=== PATIENT | female | born 1940 | race Caucasian/White ===

== ENCOUNTER → 2017-12-07 | Outpatient (CLI) | payer OTHER ==
--- NOTE | 2017-12-07 13:54 | 2DMMODE ---
[place] [address] 2 D/M-MODE ECHOCARDIOGRAM Name: RADHA WOLFF Room: [facility]#: [id number] Admission: 12/07/17 Attend Phys: Tanner Sutherland, Discharge: Date of : 40 Date of Service: 12/07/17 1353 Report #: [id number] THIS REPORT FOR: //name// APPROVED REPORT Study performed: 12/07/2017 13:11:12 EXAM: Comprehensive 2D, Doppler, and color-flow Echocardiogram Patient Location: Out-Patient BSA: 1.68 HR: 50 bpm BP: 170/98 mmHg Other Information Study Quality: Good Indications Dyspnea 2D Dimensions LVEF(%): 64.31 (>50%) IVSd: 10.17 (7-11mm) LVOT Diam: 20.13 (18-24mm) LVDd: 41.43 mm PWd: 9.65 (7-11mm) Ascending Ao: 30.62 (22-36mm) LVDs: 27.06 (25-40mm) Aortic Root: 25.99 mm Almaguer's LVEF: 64.31 % Volumes Left Atrial Volume (Systole) LA ESV Index: 22.90 mL/m2 Aortic Valve AoV Peak Juan Daniel.: 1.08 m/s AO Peak Gr.: 4.63 mmHg LVOT Max P.39 mmHg AO Mean Gr.: 2.50 mmHg LVOT Mean P.13 mmHg LVOT Max V: 0.77 m/s AO V2 VTI: 26.26 cm LVOT Mean V: 0.48 m/s JASON (VTI): 2.19 cm2 LVOT V1 VTI: 18.12 cm Mitral Valve E/A Ratio: 1.29 MV Decel. Time: 142.96 ms MV E Max Juan Daniel.: 0.65 m/[place] [address] 2 D/M-MODE ECHOCARDIOGRAM Name: NEWRADHA Robina Room: [facility]#: [id number] Admission: 12/07/17 Attend Phys: Tanner Sutherland, Discharge: Date of : 40 Date of Service: 12/07/17 1353 Report #: [id number] MV PHT: 41.46 ms MVA (PHT): 5.31 cm2 TDI E/Lateral E': 8.13 E/Medial E': 7.22 Medial E' Juan Daniel.: 0.09 m/s Lateral E' Juan Daniel.: 0.08 m/s Pulmonary Valve PV Peak Juan Daniel.: 0.73 m/s PV Peak Gr.: 2.11 mmHg Tricuspid Valve RAP Estimate: 5.00 mmHg TR Peak Gr.: 29.27 mmHg RVSP: 34.27 mmHg PA Pressure: 34.27 mmHg Left Ventricle The left ventricle is normal size. There is normal LV segmental wall motion. There is normal left ventricular wall thickness. Left ventricular systolic function is normal. The left ventricular ejection fraction is within the normal range. LVEF is 60-65%. The left ventricular diastolic function is normal. Right Ventricle The right ventricle is normal size. The right ventricular systolic function is normal. Atria The left atrium size is normal. The right atrium size is normal. Aortic Valve The aortic valve is normal in structure. No aortic regurgitation is present. There is no aortic valvular stenosis. Mitral Valve Mitral valve leaflets are mildly thickened. Mild mitral regurgitation. No evidence of mitral valve stenosis. Tricuspid Valve The tricuspid valve is normal in structure. Trace tricuspid regurgitation. Pulmonic Valve The pulmonary valve is normal in structure. Trace to mild pulmonic [place] [address] 2 D/M-MODE ECHOCARDIOGRAM Name: RADHA WOLFF Room: [facility]#: [id number] Admission: 12/07/17 Attend Phys: Tanner Sutherland, Discharge: Date of : 40 Date of Service: 12/07/17 1353 Report #: [id number] Great Vessels The aortic root is normal in size. IVC is normal in size and collapses with >50% inspiration Pericardium There is no pericardial effusion. <Conclusion> The left ventricle is normal size. There is normal left ventricular wall thickness. Left ventricular systolic function is normal. The left ventricular ejection fraction is within the normal range. LVEF is 60-65%. The left ventricular diastolic function is normal. The right ventricle is normal size. The left atrium size is normal. The aortic valve is normal in structure. Mitral valve leaflets are mildly thickened. Mild mitral regurgitation. No evidence of mitral valve stenosis. The tricuspid valve is normal in structure. Trace tricuspid regurgitation. IVC is normal in size and collapses with >50% inspiration There is no pericardial effusion. There is normal LV segmental wall motion. <ELECTRONICALLY SIGNED> By: Michael Alexander MD, FACC 12/07/17 1353 1353 1353 Michael Alexander MD, FACC /INF
== END ==
LOC: M.CRD 12:58
DX: R06.02 Shortness of breath (principal); I51.9 Heart disease, unspecified; Z88.8 Allergy status to other drugs, medicaments and biological substances